=== PATIENT | male | born 1940 | race Caucasian/White ===

== ENCOUNTER 2017-02-03 12:34 | Emergency (ER) | payer SELFPAY ==
[~2017-02-03] VITALS: Wt 82.0 kg
--- NOTE | 2017-02-03 13:16 | ERD ---
ER Documentation Chief Complaint Chief Complaint s/p [facility] fall has nu knee pain HPI 76-year-old female with history of hypertension, diabetes type 2 comes emergency department with mechanical fall complaining of bilateral knee pain. The patient states that he was walking in his knees have been bothering him and gave out causing him to fall forward onto both anterior knees. The patient describes diffuse pain to bilateral knees are achy, worse with weightbearing better at rest. He has not had any difficulty with ambulation. He denies any radiation of pain, or hip pain. He denies any precipitating factors including chest pain, shortness breath, dizziness, palpitations. ROS All systems reviewed and are negative except as per history of present illness. Medications Home Meds Active Scripts Tramadol HCl (Tramadol HCl) 50 Mg Tablet, 50 MG PO Q4 Y for PAIN, #15 TAB Prov:BRENDA ANDERSEN PA-C 02/03/17 Acetaminophen* (Tylophen*) 500 Mg Capsule, 1 CAP PO Q6H Y for PAIN AND OR ELEVATED TEMP, #20 CAP Prov:BRENDA ANDERSEN PA-C 02/03/17 Allergies Allergies: Coded Allergies: No Known Allergy (Unverified , 02/03/17) PMhx/Soc Hx Miscellaneous Medical Probl: No (Hypertension, diabetes) Hx Alcohol Use: No Hx Substance Use: No Physical Exam Vitals Vital Signs Date Time Temp Pulse Resp B/P Pulse Ox O2 Delivery O2 Flow Rate FiO2 02/03/17 12:39 98.1 90 18 143/70 4 Physical Exam General: Well-developed, well-nourished. The patient appears in no acute distress. HEENT: Head is normocephalic, atraumatic. No scleral icterus. Neck: Supple. Nontender. Lungs: Clear to auscultation. Normal air movement. Heart: Regular rate and rhythm. S1 and S2 are normal. No murmurs, gallops, or rubs. Abdomen: Soft, nontender, nondistended. Bowel sounds are normoactive. Extremities: No joint effusions, no abrasions, no bony deformities, patient is full range of motion to bilateral knee flexion extension. Neurologic: Alert and oriented 3. No focal deficits. Skin: Normal turgor. No rash or lesions. Results 24 hrs Current Medications Medications (Trade) Dose Ordered Sig/Matilda Route PRN Reason Start Time Stop Time Status Last Admin Dose Admin Acetaminophen (Tylenol Tab) 650 mg ONCE ONCE PO 02/03/17 13:30 02/03/17 13:31 DC 02/03/17 13:25 DIAGNOSTIC IMAGING REPORT Patient: MICHA SANTANA : 1940 Age: 76 Sex: M MR #: [id number] DOS: 02/03/17 0000 Ordering MD: BRENDA ANDERSEN PA-C Location: [facility] Room/Bed: PROCEDURE: Bilateral knee series CLINICAL INDICATION: Trauma and pain TECHNIQUE: AP, axial and lateral views were obtained of the right and left knees. COMPARISON: None FINDINGS: There is severe degenerate joint disease of both knees worse involving the left knee and worse involving both medial compartments. There are no acute fractures or dislocations. Bilateral small knee joint effusions. The bony mineralization is normal without focal bony blastic or lytic lesions. The soft tissues are otherwise unremarkable. IMPRESSION: 1. 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 2. Bilateral small knee joint effusions. RPTAT:AAJJ Physician Speedy Date Time Electronically viewed and signed by Physician Speedy on 02/03/2017 14:09 BM/ CC: BRENDA ANDERSEN PA-C Procedures/MDM ED COURSE: Patient was given Tylenol for pain. [employer]ISION [employer]KIN-year-old male comes in status post mechanical fall complaining of bilateral knee pain. Patient states that he had had bad knees, and his knees gave out causing to fall forward. The patient is neurologically intact, that showed any signs of dehydration vitals are normal. X-rays of the knee show no acute fractures, small bilateral knee effusions. The patient is ambulatory at this time without any limb threatening process and is stable for discharge. Patient's blood pressure was elevated (>120/80) but appears stable without evidence of hypertension emergency or urgency. The patient was counseled about the risks of hypertension and urged to pursue outpatient monitoring and therapy within a week with their primary care physician. Departure Diagnosis: Primary Impression: Knee injury Condition: Good BRENDA ANDERSEN PA-C Feb 03, 2017 13:16
[2017-02-03] MEDS ORDERED: ACETAMINOPHEN 325 MG TAB PO ONE (13:30)
--- NOTE | 2017-02-03 14:10 | RADRPT ---
PROCEDURE: Bilateral knee series CLINICAL INDICATION: Trauma and pain TECHNIQUE: AP, axial and lateral views were obtained of the right and left knees. 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 There are no acute fractures or dislocations. Bilateral small knee cachorro int effusions. The bony mineralization is normal without focal bony blastic or lytic lesions. The so ft tissues are otherwise unremarkable. IMPRESSION: 1. 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 2. Bilateral small knee joint effusions. RPTAT:AAJJ Physician Speedy Date Time Electronically viewed and signed by Mony Robbins Physician on 02/03/2017 14:09 /
[2017-02-03] MEDS ORDERED: ACET500C5 PO (14:19)
[2017-02-03] MEDS ORDERED: TRAM50TA2 PO (14:19)
[2017-02-03 14:29] VITALS: BP 123/71; PULSE 82; RESP 18; TEMP 98.2
== END 2017-02-03 14:29 | disposition home or self-care (01) ==
LOC: FTE 12:34
DX: S89.92XA Unspecified injury of left lower leg, initial encounter (principal); S89.91XA Unspecified injury of right lower leg, initial encounter; E11.9 Type 2 diabetes mellitus without complications; I10 Essential (primary) hypertension; W18.39XA Other fall on same level, initial encounter; Y92.9 Unspecified place or not applicable